=== PATIENT | female | born 1950 | race Caucasian/White ===

== ENCOUNTER → 2023-11-07 07:30 | Outpatient (REF) | payer MEDICARE, OTHER, SELFPAY ==
[2023-11-07 09:57] LABS: % Basophils 1.8 % (0-2); % Eosinophils 4.8 % (0-6); % Immature Granulocytes 0.2 % (0-0.5); % Lymphocytes 39.5 % (20.5-51.1); % Monocytes 8.1 % (1.7-9.3); % Neutrophils 45.6 % (42.2-75.2); Absolute Basophils 0.1 10^3/uL (0-0.2); Absolute Eosinophils 0.3 10^3/uL (0-0.7); Absolute Lymphocytes 2.2 10^3/uL (1.2-3.4); Absolute Monocytes 0.5 10^3/uL (0.1-0.6); Absolute Neutrophils 2.5 10^3/uL (1.4-6.5); Hematocrit 34.7 % (37.0-47.0); Hemoglobin 11.3 g/dL (12.0-16.0); Mean Corp Hgb Conc. 32.6 g/dL (33.0-37.0); Mean Corpuscular Hgb 31.2 pg (27.0-31.0); Mean Corpuscular Volume 95.9 fL (81.0-99.0); Mean Platelet Volume 10.5 fL (7.4-10.4); Nucleated Red Blood Cells % 0 %; Platelet Count 213 10^3/uL (130-400); Red Blood Cell Count 3.62 10^6/uL (4.20-5.40); Red Cell Dist. Width 13.3 % (11.5-14.5); White Blood Cell Count 5.6 10^3/uL (4.8-10.8)
[2023-11-07 10:18] LABS: ALT (SGPT) 16 U/L (0-35); AST (SGOT) 26 U/L (14-36); Albumin 3.9 g/dl (3.5-5.0); Alkaline Phosphatase 55 U/L (38-126); Blood Urea Nitrogen 23 mg/dl (7-17); Calcium 9.2 mg/dl (8.4-10.2); Carbon Dioxide 27 mmol/L (22-30); Chloride 107 mmol/L (98-107); Glucose 93 mg/dl (70-99); HDL Cholesterol 75 mg/dl; LDL Cholesterol, Calculated 82 mg/dl; Phosphorus 4.9 mg/dl (2.5-4.5); Sodium 138 mmol/L (135-145); Total Bilirubin 0.4 mg/dl (0.2-1.3); Total Cholesterol 172 mg/dl (50-199); Total Protein 6.9 g/dl (6.3-8.2); Triglyceride 79 mg/dl (10-149); Very Low Density Lipoprotein 15 mg/dl (0-30); eGFR > 60.00
[2023-11-07 10:32] LABS: Free T4 1.48 ng/dl (0.78-2.19)
[2023-11-07 10:46] LABS: TSH 1.79 uIU/ml (0.47-4.68)
[2023-11-07 11:59] LABS: Glycohemoglobin (HgbA1c) 6.1 % (4.0-5.6)
[2023-11-08 10:24] LABS: Intact PTH 25.1 pg/ml (13.6-85.8)
== END ==
LOC: HWLAB 07:30
PROVIDERS: ATTENDING PHYSICIAN Internal Medicine
DX: M81.0 Age-related osteoporosis without current pathological fracture (principal); E78.5 Hyperlipidemia, unspecified; Z79.899 Other long term (current) drug therapy
CPT/HCPCS: 36415; 80053; 80061; 83036; 83970; 84100; 84439; 84443; 85025

== ENCOUNTER → 2024-02-25 09:06 | Outpatient (REF) | payer MEDICARE, OTHER, SELFPAY ==
[2024-02-25 12:41] LABS: Iron 88 ug/dl (37-170)
[2024-02-25 12:50] LABS: Percent Saturation 30 % (20-50); Total Iron Binding Capacity 286 ug/dl (265-497)
[2024-02-25 13:17] LABS: Ferritin 39.1 ng/ml (11.1-264.0)
[2024-02-25 13:21] LABS: % Basophils 1.3 % (0-2); % Eosinophils 5.1 % (0-6); % Immature Granulocytes 0.1 % (0-0.5); % Lymphocytes 27.8 % (20.5-51.1); % Monocytes 7.9 % (1.7-9.3); % Neutrophils 57.8 % (42.2-75.2); Absolute Basophils 0.1 10^3/uL (0-0.2); Absolute Eosinophils 0.4 10^3/uL (0-0.7); Absolute Lymphocytes 1.9 10^3/uL (1.2-3.4); Absolute Monocytes 0.6 10^3/uL (0.1-0.6); Hematocrit 35.9 % (37.0-47.0); Mean Corp Hgb Conc. 33.4 g/dL (33.0-37.0); Mean Corpuscular Hgb 31.8 pg (27.0-31.0); Mean Corpuscular Volume 95.2 fL (81.0-99.0); Mean Platelet Volume 10.9 fL (7.4-10.4); Nucleated Red Blood Cells % 0 %; Platelet Count 217 10^3/uL (130-400); Red Blood Cell Count 3.77 10^6/uL (4.20-5.40); Red Cell Dist. Width 13.8 % (11.5-14.5); White Blood Cell Count 6.9 10^3/uL (4.8-10.8)
[2024-02-25 13:49] LABS: Folate > 20.0 ng/ml (2.76-20); Vitamin B12 663 pg/ml (239-931)
== END ==
LOC: HWLAB 09:06
PROVIDERS: ATTENDING PHYSICIAN Internal Medicine
DX: E53.8 Deficiency of other specified B group vitamins (principal); D64.9 Anemia, unspecified
CPT/HCPCS: 36415; 82607; 82728; 82746; 83540; 83550; 85025

== ENCOUNTER 2024-04-03 21:38 | Emergency (ER) | payer MEDICARE, OTHER, SELFPAY ==
[2024-04-03 21:44] VITALS: BP 160/76; BMI 30.1
[2024-04-03] MEDS: MORPHINE SULFATE 4 MG IV (22:17)
[2024-04-03] MEDS: ZOFRAN 4 MG IV (22:25)
--- NOTE | 2024-04-03 23:05 | EDRN ---
Dr. Wooten in to see patient inform her of results and plan to transfer to a trauma center, patients pain increased more meds to be ordered and given to make more comfortable
--- NOTE | 2024-04-03 23:06 | ED.MUSCINJ ---
HPI-Injury
General
Chief Complaint: Fall
Time Seen by Provider: 04/03/24 22:03
History of Present Illness-Injury
Initial Injury comments:
73-year-old female with history of thyroid disease presenting after a fall. Patient arrives after walking her dog. Her dog saw something, jumped ahead and she fell injuring her right shoulder and her left leg. Denies head injury or loss of
consciousness. She is not on blood thinners. She arrives with obvious deformities to her right shoulder and left hip. Medics administered fentanyl and route. Denies numbness or tingling to her extremities. Denies any chest pain, difficulty
breathing, abdominal pain. Denies fever or recent illness. Denies additional acute medical complaints
Phy Exam
Physical Exam
Physical Exam:
General: Well-appearing, no clinical signs of dehydration, nontoxic and in no acute distress
HEENT: protecting airway
Neck: appears supple, no tenderness to cervical spine
CV: Normal heart rate, regular rhythm, no evidence of cyanosis
Resp: No accessory muscle use, no increased work of breathing, lungs clear to auscultation bilaterally
Abd: Soft and non-distended, no tenderness to palpation, normal bowel sounds
Extremities: Obvious deformity to right shoulder with suspected dislocation. Shoulder held in abduction and elbow flexion. Distal sensation and pulses intact. Range of motion limited secondary to pain. Obvious deformity to left hip. Knee held
in flexion and hip with abduction. Limited range of motion secondary to pain. Distal sensation and pulses intact.
Neuro: alert, no focal neurologic deficit
: deferred
Rectal: deferred
Psych: Normal affect
Skin: Intact
Injury Course
Orders/Labs/Results
Orders:
Orders
04/03/24 21:56
Hip, Left 2-3 Views [CR Hip - LT w/wo Pel 2-3 Vw*] Urgent
Comment:
Reason For Exam: fall
Include a pelvis x-ray?: Yes
Shoulder, Right 2 Views [CR Shoulder - Right Min 2 View] Urgent
Comment:
Reason For Exam: fall/dislocation
04/03/24 22:14
Morphine Sulfate 4 mg IV NOW STA
04/03/24 22:21
Ondansetron Injectable [Zofran] 4 mg .ROUTE .STK-MED ONE
04/03/24 22:25
Ondansetron Injectable [Zofran] 4 mg IV NOW STA
04/03/24 23:01
Type+Screen Urgent
CMP [Comprehensive Metabolic Panel] Urgent
Complete Blood Count/With Diff Urgent
04/03/24 23:06
HYDROmorphone [Dilaudid] 1 mg IV NOW STA
04/03/24 23:20
Propofol [Diprivan] 20 ml .ROUTE .STK-MED
04/03/24 23:37
ABO2 Urgent
BBK Wristband Number:
Associate notified that ABO2 has been ordered: [id number]
Date: 04/03/24
Time: 23:13
Risk Management Consultant ID: [id number]
04/04/24 00:00
CR Hip - LT without Pel 1 Vw Urgent
Reason For Exam: post reduction
CR Shoulder - Right 1 View Urgent
Reason For Exam: post reduction
Abnormal Lab Results
04/03/24
23:01
WBC 18.8 H 10^3/uL
(4.8-10.8)
RBC 3.46 L 10^6/uL
(4.20-5.40)
Hgb 10.9 L g/dL
(12.0-16.0)
Hct 32.2 L %
(37.0-47.0)
MCH 31.5 H pg
(27.0-31.0)
Abs Immat Gran (auto) 0.1 H 10^3/uL
(0-0.05)
Absolute Neuts (auto) 15.6 H 10^3/uL
(1.4-6.5)
Absolute Monos (auto) 1.2 H 10^3/uL
(0.1-0.6)
Immature Gran % 0.7 H %
(0-0.5)
Neutrophils % 83.0 H %
(42.2-75.2)
Lymphocytes % 9.2 L %
(20.5-51.1)
BUN 35 H mg/dl
(7-17)
Glucose 185 H mg/dl
(70-99)
Calcium 8.3 L mg/dl
(8.4-10.2)
Antibody Screen Positive A
(Negative)
04/03/24 23:01
04/03/24 23:01
Procedures
Moderate Sedation
ASA Risk Score: Class II
Chart and allergies reviewed: Yes
Consent for anesthesia obtained: Yes
Time out completed (validating right patient & procedure): Yes
Moderate Sedation Start Time(when first medication is given): 23:52
History of difficult intubation: No
Airway free of obstruction: Yes
Patient has a gag reflex: Yes
Patient is able to open mouth: Yes
Patient has no dentures: Yes
Patient has no loose teeth: Yes
Medication administered by Provider during Moderate Sedation: IV Propofol (mg)
Total dose administered: 100
Time drug administered: 23:52
Moderate Sedation Procedure End Time: 00:20
Joint/Fracture Reduction
R-shoulder, L-hip:
Indication for procedure:: dislocation
Procedure completed by: Sada Wooten DO
Consent form signed: Yes
Joint reduced: with anesthesia sedation
Anesthesia/sedation: Moderate sedation
Injury was: closed
Post reduction exam: unstable
Capillary Refill: normal
Normal distal neurovascular exam?: Yes
Additional information:
unsuccessful R-shoulder. Improvement in L-hip, known acetabular fracture, remains unstable
MDM/Problems Addressed
MDM/Problems Addressed:
73-year-old female presenting after a fall with right shoulder shoulder and left hip pain. Vital signs significant for high blood pressure.
On exam, patient in no acute distress, however uncomfortable secondary to pain with obvious deformities to extremities. No signs of head trauma. Unremarkable examination of the chest and abdomen. No tenderness to the cervical spine or back. Will
obtain x-ray images.
22:55 - Patient with right shoulder dislocation as well as left hip dislocation, however fracture component. Images sent to orthopedics, concern for posterior wall acetabular fracture with posterior hip dislocation. Recommending transfer to trauma
center.
23:30 - Patient updated. Did discuss with [facility], accepted by Dr. Patino. Patient is uncomfortable, so we will try to relocate her joints. Patient consented.
12:45 -after multiple attempts to relocate shoulder, unsuccessful. Patient's alignment on exam improved for left hip, able to straighten her leg now audible click. X-ray still shows partial dislocation and acetabular fracture. Transfer at
bedside, hemodynamically stable
*Critical Care Note
Total Time (30-74mins, 75-104mins- exclusive of procedures): 50
comment:
The high probability of a clinically significant, sudden or life threatening deterioration of the trauma system(s) required my full and direct attention, intervention and personal management. The aggregate critical care time was 50 minutes. This
time is in addition to time spent performing reported procedures but includes the following:
[x] Data Review and interpretation
[x] Patient assessment and monitoring of vital signs
[x] Documentation
[x] Medication orders and management
ED Attending Note
-
Portions of this chart may have been created with voice recognition software.� Occasional wrong word or��sound alike� substitutions may have occurred due to the inherent limitations of voice recognition software.
Discharge Plan
Departure
Patient Disposition: Acute Care Hospital
Date of Disposition: 04/03/24
Time of Disposition: 23:35
Condition: Fair
Discharge Problem:
Closed fracture of posterior wall of acetabulum, Dislocation of left hip, Dislocation of right shoulder joint
Prescriptions:
No Action
celecoxib [Celebrex] 200 mg Capsule
200 mg PO DAILY
levothyroxine [Synthroid] 75 mcg Tablet
75 mcg PO .SAT/SUN
levothyroxine [Synthroid] 50 mcg Tablet
62.5 mcg PO .FRI-FRI
simvastatin 20 mg Tablet
20 mg PO DAILY
Prolia 60 mg/mL Syringe
60 mg SC [id number]
Referrals:
Bela Ahmadi MD [Family Provider] -
Hospital Transfer
Other hospital: [facility]
I certify that the patient requires transfer: Yes
Discussed case with accepting physician: Dr. Obregon
Reason for transfer: specialties available
Interventions
Interventions:
*Risk Screen - Suicide Last Done: 04/03/24 21:44
*General Assessment Last Done: 04/03/24 21:44
*Neglect/Abuse Screening Last Done: 04/03/24 21:44
ED- Fall Risk Assessment Last Done: 04/03/24 22:31
*ED COVID-19 Vaccine History Last Done: 04/03/24 21:44
*Nursing Disposition Last Done: 04/04/24 01:10
ED-Musculoskeletal Assessment Last Done: 04/03/24 22:31
ED- Neurological Assessment Last Done: 04/03/24 22:31
ED-Skin Assessment Last Done: 04/03/24 22:31
Discharge Date and Time
Discharge Date/Time: 04/04/24 01:13
Print Language: GHANAIAN
[2024-04-03] MEDS: DILAUDID 1 MG IV (23:09)
[2024-04-03 23:10] VITALS: BP 148/73
[2024-04-03 23:13] LABS: % Basophils 0.5 % (0-2); % Eosinophils 0.5 % (0-6); % Immature Granulocytes 0.7 % (0-0.5); % Lymphocytes 9.2 % (20.5-51.1); % Monocytes 6.1 % (1.7-9.3); Absolute Basophils 0.1 10^3/uL (0-0.2); Absolute Eosinophils 0.1 10^3/uL (0-0.7); Absolute Immature Granulocytes 0.1 10^3/uL (0-0.05); Absolute Lymphocytes 1.7 10^3/uL (1.2-3.4); Absolute Monocytes 1.2 10^3/uL (0.1-0.6); Absolute Neutrophils 15.6 10^3/uL (1.4-6.5); Hematocrit 32.2 % (37.0-47.0); Hemoglobin 10.9 g/dL (12.0-16.0); Mean Corp Hgb Conc. 33.9 g/dL (33.0-37.0); Mean Corpuscular Hgb 31.5 pg (27.0-31.0); Mean Corpuscular Volume 93.1 fL (81.0-99.0); Mean Platelet Volume 9.8 fL (7.4-10.4); Nucleated Red Blood Cells % 0 %; Platelet Count 226 10^3/uL (130-400); Red Blood Cell Count 3.46 10^6/uL (4.20-5.40); Red Cell Dist. Width 14.1 % (11.5-14.5); White Blood Cell Count 18.8 10^3/uL (4.8-10.8)
[2024-04-03 23:25] LABS: ALT (SGPT) 20 U/L (0-35); AST (SGOT) 35 U/L (14-36); Albumin 4.1 g/dl (3.5-5.0); Alkaline Phosphatase 63 U/L (38-126); Blood Urea Nitrogen 35 mg/dl (7-17); Calcium 8.3 mg/dl (8.4-10.2); Carbon Dioxide 25 mmol/L (22-30); Chloride 104 mmol/L (98-107); Estimated Creatinine Clearance 69 ml/min; Glucose 185 mg/dl (70-99); Potassium 4.5 mmol/L (3.5-5.1); Sodium 139 mmol/L (135-145); Total Bilirubin 0.3 mg/dl (0.2-1.3); Total Protein 6.7 g/dl (6.3-8.2); eGFR > 60.00
[2024-04-03 23:52] VITALS: BP 148/73
[2024-04-03 23:57] VITALS: BP 101/50
[2024-04-04 00:03] VITALS: BP 93/80
[2024-04-04 00:08] VITALS: BP 184/104
[2024-04-04 00:12] VITALS: BP 179/84
[2024-04-04 00:15] VITALS: BP 137/53
[2024-04-04 00:30] VITALS: BP 136/65
[2024-04-04 00:45] VITALS: BP 132/62
--- NOTE | 2024-04-04 01:08 | EDRN ---
Report to [facility] nurse KIA Turner
== END 2024-04-04 01:13 | disposition short-term general hospital (02) ==
LOC: EMR 21:38
PROVIDERS: EMERGENCY PHYSICIAN Student in an Organized Health Care Education/Training Program; FAMILY PHYSICIAN Internal Medicine
DX: S43.034A Inferior dislocation of right humerus, initial encounter (principal); S73.005A Unspecified dislocation of left hip, initial encounter; W19.XXXA Unspecified fall, initial encounter; Y93.K1 Activity, walking an animal; E07.9 Disorder of thyroid, unspecified
CPT/HCPCS: 99291; 23650; 99152; 73020; 73030; 73501; 73502; 80053; 85025; 86850; 86870; 86900; 86901

== ENCOUNTER → 2024-10-20 06:59 | Outpatient (REF) | payer MEDICARE, OTHER, SELFPAY ==
[2024-10-20 10:31] LABS: ALT (SGPT) 17 U/L (0-35); AST (SGOT) 22 U/L (14-36); Albumin 3.8 g/dl (3.5-5.0); Alkaline Phosphatase 74 U/L (38-126); Blood Urea Nitrogen 23 mg/dl (7-17); Calcium 9.1 mg/dl (8.4-10.2); Carbon Dioxide 31 mmol/L (22-30); Chloride 105 mmol/L (98-107); Glucose 96 mg/dl (70-99); HDL Cholesterol 65 mg/dl; LDL Cholesterol, Calculated 104 mg/dl; Phosphorus 4.1 mg/dl (2.5-4.5); Potassium 3.9 mmol/L (3.5-5.1); Sodium 141 mmol/L (135-145); Total Bilirubin 0.3 mg/dl (0.2-1.3); Total Cholesterol 203 mg/dl (50-199); Total Protein 6.8 g/dl (6.3-8.2); Triglyceride 173 mg/dl (10-149); Very Low Density Lipoprotein 34 mg/dl (0-30); eGFR > 60.00
[2024-10-20 10:46] LABS: Vitamin D, 25-OH*** 65.8 ng/mL (30-80)
[2024-10-20 10:59] LABS: TSH 2.72 uIU/ml (0.47-4.68)
[2024-10-20 11:29] LABS: Glycohemoglobin (HgbA1c) 5.7 % (4.0-5.6)
== END ==
LOC: HWLAB 06:59
PROVIDERS: ATTENDING PHYSICIAN Internal Medicine
DX: E78.5 Hyperlipidemia, unspecified (principal); Z79.899 Other long term (current) drug therapy; M81.0 Age-related osteoporosis without current pathological fracture
CPT/HCPCS: 36415; 80053; 80061; 82306; 83036; 84100; 84439; 84443

== ENCOUNTER → 2024-11-03 11:04 | Outpatient (REF) | payer MEDICARE, OTHER, SELFPAY ==
[2024-11-03 15:59] LABS: % Basophils 1.1 % (0-2); % Eosinophils 2.9 % (0-6); % Immature Granulocytes 0.3 % (0-0.5); % Lymphocytes 29.3 % (20.5-51.1); % Monocytes 6.9 % (1.7-9.3); % Neutrophils 59.5 % (42.2-75.2); Absolute Basophils 0.1 10^3/uL (0-0.2); Absolute Eosinophils 0.2 10^3/uL (0-0.7); Absolute Lymphocytes 2.3 10^3/uL (1.2-3.4); Absolute Monocytes 0.6 10^3/uL (0.1-0.6); Absolute Neutrophils 4.8 10^3/uL (1.4-6.5); Hematocrit 36.1 % (37.0-47.0); Mean Corp Hgb Conc. 33.2 g/dL (33.0-37.0); Mean Corpuscular Hgb 30.5 pg (27.0-31.0); Mean Corpuscular Volume 91.6 fL (81.0-99.0); Mean Platelet Volume 10.4 fL (7.4-10.4); Nucleated Red Blood Cells % 0 %; Platelet Count 213 10^3/uL (130-400); Red Blood Cell Count 3.94 10^6/uL (4.20-5.40); Red Cell Dist. Width 14.1 % (11.5-14.5)
[2024-11-03 16:07] LABS: Iron 80 ug/dl (37-170)
[2024-11-03 16:17] LABS: Percent Saturation 27 % (20-50); Total Iron Binding Capacity 291 ug/dl (265-497)
[2024-11-03 16:41] LABS: Ferritin 40.5 ng/ml (11.1-264.0)
== END ==
LOC: HWLAB 11:04
PROVIDERS: ATTENDING PHYSICIAN Internal Medicine
DX: D64.9 Anemia, unspecified (principal)
CPT/HCPCS: 36415; 82728; 83540; 83550; 85025

== ENCOUNTER → 2025-03-11 06:40 | Outpatient (REF) | payer MEDICARE, OTHER, SELFPAY ==
[2025-03-11 09:41] LABS: Urine Character Slightly Cloudy (Clear)
[2025-03-11 09:44] LABS: Hematocrit 37.0 % (37.0-47.0); Hemoglobin 11.8 g/dL (12.0-16.0); Mean Corp Hgb Conc. 31.9 g/dL (33.0-37.0); Mean Corpuscular Volume 97.4 fL (81.0-99.0); Nucleated Red Blood Cells % 0 %; Platelet Count 223 10^3/uL (130-400); Red Cell Dist. Width 13.3 % (11.5-14.5)
[2025-03-11 10:03] LABS: ALT (SGPT) 14 U/L (0-35); AST (SGOT) 21 U/L (14-36); Albumin 4.1 g/dl (3.5-5.0); Alkaline Phosphatase 58 U/L (38-126); Blood Urea Nitrogen 21 mg/dl (7-17); Calcium 8.5 mg/dl (8.4-10.2); Carbon Dioxide 30 mmol/L (22-30); Chloride 107 mmol/L (98-107); Glucose 92 mg/dl (70-99); HDL Cholesterol 71 mg/dl; LDL Cholesterol, Calculated 127 mg/dl; Potassium 4.2 mmol/L (3.5-5.1); Sodium 140 mmol/L (135-145); Total Protein 7.0 g/dl (6.3-8.2); Very Low Density Lipoprotein 28 mg/dl (0-30); eGFR > 60.00
[2025-03-11 10:11] LABS: Glycohemoglobin (HgbA1c) 5.9 % (4.0-5.6)
[2025-03-11 10:16] LABS: Urine Red Blood Cell 16-20 /HPF (0-2)
[2025-03-11 10:17] LABS: Urine White Cell 0-2 /HPF (0-5)
[2025-03-11 10:21] LABS: Vitamin D, 25-OH*** 63.9 ng/mL (30-80)
[2025-03-11 10:34] LABS: TSH 5.15 uIU/ml (0.47-4.68)
== END ==
LOC: HWLAB 06:40
PROVIDERS: ATTENDING PHYSICIAN Internal Medicine
DX: E89.0 Postprocedural hypothyroidism (principal); E78.5 Hyperlipidemia, unspecified; Z79.899 Other long term (current) drug therapy; M81.0 Age-related osteoporosis without current pathological fracture
CPT/HCPCS: 36415; 80053; 80061; 81003; 81015; 82306; 83036; 84439; 84443; 85025

== ENCOUNTER → 2025-03-16 14:32 | Outpatient (REF) | payer MEDICARE, OTHER, SELFPAY | LOC: RAD 14:32 | PROVIDERS: ATTENDING PHYSICIAN Internal Medicine | DX: R22.1 Localized swelling, mass and lump, neck (principal) | CPT/HCPCS: 70492; Q9967 ==